=== PATIENT | female | born 1980 | race American Indian/Alaskan Native ===

== ENCOUNTER 2016-12-01 10:42 | Emergency (ER) | payer MEDICAID ==
[2016-12-01 10:59] VITALS: BP 127/75
== END 2016-12-01 15:50 | disposition left against medical advice (07) ==
LOC: ED 10:42
DX: J02.9 Acute pharyngitis, unspecified (principal); R51 Headache; Z53.21 Procedure and treatment not carried out due to patient leaving prior to being seen by health care provider